=== PATIENT | male | born 1980 | race Caucasian/White ===

== ENCOUNTER 2024-07-07 13:49 | Emergency (ER) | payer BC, SELFPAY ==
--- NOTE | 2024-07-07 13:56 | ED.URI ---
HPI - URI/Sore Throat General Chief Complaint: Upper Respiratory Infection Stated Complaint: Strep Symptoms Time Seen by Provider: 07/07/24 13:56 Source: patient Mode of arrival: ambulatory Limitations: no limitations History of Present Illness HPI Narrative: Riley is a 43-year-old male patient presenting to the clinic today with complaints of possible strep. He reports he has had low-grade fever, and body aches, cough, congestion, and sore throat over the past 4-5 days. He reports that his and son both tested positive for the flu and strep. He denies any chest pain or shortness of breath. He reports that his symptoms are feeling better but the sore throat has gotten gradually worse. MD elicited complaint: sore throat and nasal congestion Related Data Home Medications ?Medication ?Instructions ?Recorded ?Confirmed ?Last Taken ?Type No Home Medications 07/07/24 07/07/24 Unknown History Allergies Allergy/AdvReac Type Severity Reaction Status Date / Time No Known Allergies Allergy Verified 07/07/24 14:07 Review of Systems Review of Systems: Pertinent positives per HPI. Patient denies any rash, headache, visual changes, dizziness, shortness of breath, chest pain, palpitations, nausea, vomiting, diarrhea, constipation, abdominal pain, or any urinary issues. PMFSH Social History Social History Smoking status: Current every day smoker Alcohol intake: current Comments At the time of my signature, I reviewed and agree with the nursing past medical, surgical, social, and family history. There is no relevant family history pertinent to the patient complaint. Exam Narrative: General: Well-developed, well nourished, in no apparent distress Head: Normocephalic, atraumatic Eyes: Pupils equally round and reactive to light bilaterally, EOM intact, sclera and conjunctive clear, no discharge, lids normal Ears: TMs intact and clear, ear canals clear, no drainage, grossly hearing normal. Nose: Nares patent, clear nasal discharge, no inflammation, no sinus tenderness. Mouth: Oral pharynx red without lesions or masses, good dentition, MMM. Postnasal drip, tonsils surgically absent. Neck: Supple, trachea midline, no enlargement of anterior or posterior cervical nodes, no thyroid masses or goiter palpable. Cardio: Regular rate and rhythm, s1 and s2 normal, no murmur appreciated. Resp: Clear to auscultation bilaterally, no rhonchi, rales, wheezing or rubs Course Course Emergency Course: Portions of this record may have been created with voice recognition software. Level of Care: Express Care Visit Vital Signs Vital signs: Vital Signs Temperature 36.1 C L 07/07/24 14:08 Pulse Rate 89 07/07/24 14:08 Respiratory Rate 16 07/07/24 14:08 Blood Pressure 156/88 H 07/07/24 14:08 Pulse Oximetry 97 07/07/24 14:08 Temperature 36.1 C L 07/07/24 14:08 Pulse Rate 89 07/07/24 14:08 Respiratory Rate 16 07/07/24 14:08 Blood Pressure 156/88 H 07/07/24 14:08 Pulse Oximetry 97 07/07/24 14:08 Vital signs reviewed MDM - URI/Sore Throat MDM Narrative Medical decision making narrative: At the time of visit patient is resting comfortably on the exam table. Patient appears to be nontoxic. Labs: Strep, COVID, and influenza testing was all negative. We will send strep for culture. Plan: I suspect patient has URI/pharyngitis/viral syndrome. Supportive measures were discussed with the patient and they voiced understanding discharge instructions and agrees to treatment plan. Return precautions reviewed Differential Diagnosis Differential diagnosis: Likely upper respiratory infection, otitis media, sinusitis, viral infection, bronchitis, influenza, pharyngitis and other (COVID) Discharge Plan Discharge Clinical Impression: Viral infection Upper respiratory infection Qualifiers: URI type: unspecified URI Qualified Code(s): J06.9 - Acute upper respiratory infection, unspecified Pharyngitis Qualifiers: Pharyngitis/tonsillitis etiology: unspecified etiology Qualified Code(s): J02.9 - Acute pharyngitis, unspecified Patient Disposition: Home, Self-Care Condition: Stable Instructions: Antibiotic Form, Pharyngitis (ED), Viral Syndrome (ED), Cold Symptoms (ED) Additional Instructions: COVID, influenza, and strep test were all negative in the clinic today. We will send strep for culture if this comes back positive we will contact you in place you on antibiotics at that time. Increase fluids and stay well hydrated Tylenol/motrin for pain/fever Flonase and OTC antihistamines as directed Vicks vapor rub to open sinuses Sinus rinses for congestion Cepacol spray, cough drops, throat lozenges, warm tea with honey/lemon, gargle salt water to soothe throat BRAT diet for diarrhea Clear liquids x 24 hours then advance as tolerated for nausea/vomiting Go to the ED if you develop a worsening in your condition- high fever not controlled by Tylenol or Motrin, dehydration, weakness, lethargy, shortness of breath, or chest pain. Follow up with your PCP in 3-5 days if symptoms persist. Patient Language: Anguill[place] Prescriptions: No Action No Home Medications Follow-up/Referrals: PHYSICIAN,GARNETT MACHINE OPERATOR HELPER [Primary Care Provider] - Time of Disposition: 14:10 Quality NIHSS Nursing Documentation ED NIHSS nursing documentation: reviewed/agree
[2024-07-07 14:08] VITALS: BP 156/88; PULSE 89; RESP 16; TEMP 36.1; O2SAT 97
[2024-07-07 14:19] LABS: EDCOVIDSCREEN Negative (Negative); EDINFLUASCREEN Negative (Negative); EDINFLUBSCREEN Negative (Negative); EDSTREPNEGPOS1 Negative (Negative)
== END 2024-07-07 14:19 | disposition home or self-care (01) ==
PROVIDERS: Emergency Provider Nurse Practitioner Family
DX: B34.9 Viral infection, unspecified (principal); J06.9 Acute upper respiratory infection, unspecified; J02.9 Acute pharyngitis, unspecified; Z20.822 Contact with and (suspected) exposure to COVID-19; F17.200 Nicotine dependence, unspecified, uncomplicated
CPT/HCPCS: 87081; 87426; 87804; 87880; 99213; G0463

== ENCOUNTER 2024-07-24 13:20 | Emergency (ER) | payer BC, SELFPAY ==
--- NOTE | ~2024-07-24 | XR_ITS ---
EXAMINATION: XR chest 2V DATE: 07/24/2024 13:43 INDICATION: Cough and congestion. TECHNIQUE: Frontal and lateral views of the chest were obtained. COMPARISON: None. FINDINGS: There is no pneumonia, pleural effusion, or pneumothorax. The heart size is normal. There i s mild chronic anterior wedging of multiple vertebral bodies. IMPRESSION: 1. No acute cardiopulmonary disease. Reviewed, dictated and finalized at location A. ES 1 THROUGH 6 TEACHER
[2024-07-24 13:28] VITALS: BP 134/84; PULSE 76; RESP 16; TEMP 36.4; O2SAT 100
--- NOTE | 2024-07-24 13:36 | ED.URI ---
HPI - URI/Sore Throat General Chief Complaint: Upper Respiratory Infection Stated Complaint: Chest Congestion Source: patient and RN notes reviewed Mode of arrival: ambulatory Limitations: no limitations History of Present Illness HPI Narrative: Patient is a 43-year-old male who presents to the [facility] complaints ongoing cough for the past couple weeks. Patient states that he was sick a couple weeks ago with cough, congestion, body aches, chills. He tested negative for both COVID and flu at that time. However, his son and were diagnosed with influenza A. He states that he has had an ongoing nonproductive cough that is occasionally productive. He reports chest congestion. Denies shortness of breath. Denies recent fevers. His respirations are unlabored. Related Data Allergies Allergy/AdvReac Type Severity Reaction Status Date / Time No Known Allergies Allergy Verified 07/07/24 14:07 Review of Systems Review of Systems: CONSTITUTIONAL: Denies fever, chills, or sweats. EYES: Denies visual changes, redness, or discharge. ENT: Denies otalgia and sore throat CARDIOVASCULAR: Denies chest pain, palpitations, or edema. RESPIRATORY: Reports cough but denies dyspnea. GASTROINTESTINAL: Denies abdominal pain, nausea, vomiting, or diarrhea. GENITOURINARY: Denies dysuria or hematuria. SKIN: Denies rash or itching. MUSCULOSKELETAL: Denies back pain, joint pain, or myalgia. NEUROLOGIC: Denies headache, numbness, or weakness. Pertinent positives per HPI. PMFSH Social History Social History Smoking status: Current every day smoker Alcohol intake: current Comments At the time of my signature, I reviewed and agree with the nursing past medical, surgical, social, and family history. There is no relevant family history pertinent to the patient complaint. Exam Narrative: GENERAL: This is a well-nourished, well-developed patient, in no apparent distress. HEAD: normocephalic, atraumatic. EYES: Sclera clear/white. Vision is grossly intact. EARS: External ears normal, auditory canals clear and without drainage, TMs normal without perforation. Hearing grossly intact. NOSE: External nose normal with no obvious nasal discharge, nares without redness, no rhinorrhea. THROAT: Mucous membranes moist, posterior pharynx clear. NECK: Neck supple, non-tender without lymphadenopathy, masses or thyromegaly. CARDIOVASCULAR: Regular rate and rhythm without murmurs, gallops, or rubs. RESPIRATORY: Clear to auscultation. Breath sounds equal bilaterally. No wheezes, rales, or rhonchi. GASTROINTESTINAL: Abdomen soft, non-tender, nondistended. Bowel sounds are active. No hepato-splenomegaly, or palpable masses. No guarding. SKIN: warm, intact with no suspicious lesions or rash, good texture and turgor. NEURO: awake, alert, and oriented to person, place and time. There were no obvious focal neurologic abnormalities. Course Course Level of Care: Express Care Visit Vital Signs Vital signs: Vital Signs Temperature 97.5 F L 07/24/24 13:28 Pulse Rate 76 07/24/24 13:28 Respiratory Rate 16 07/24/24 13:28 Blood Pressure 134/84 07/24/24 13:28 Pulse Oximetry 100 07/24/24 13:28 Temperature 97.5 F L 07/24/24 13:28 Pulse Rate 76 07/24/24 13:28 Respiratory Rate 16 07/24/24 13:28 Blood Pressure 134/84 07/24/24 13:28 Pulse Oximetry 100 07/24/24 13:28 Reviewed MDM - URI/Sore Throat MDM Narrative Medical decision making narrative: Take steroids as directed. May use the inhaler every 4-6 hours as needed for coughing. Increase fluids at home. Avoid any and all smoke. May use a humidifier in the bedroom. Increase your Vitamin C. Follow-up with personal physician in 2-5 days. Differential Diagnosis Differential diagnosis: Likely upper respiratory infection, bronchitis and other (pneumonia) Imaging Data Attestation: I personally reviewed and interpreted this imaging study as follows: Radiologist's impression: [facility] [address] [facility] [address] XRay Report Signed Patient: Riley Gutierrez : 1980 MR#: [id number] Age: 43 Acct:[id number] Loc: [id number] ADM Date: 07/24/24Attending Dr: Ordering Physician: Shaye Avalos APRN Date of Service: 07/24/24 Procedure(s): XR chest 2V Accession Number(s): [id number] cc: Shaye Avalos Jackelin VASQUEZ; FORENSICS TEAM DIRECTOR PHYSICIAN~ EXAMINATION: XR chest 2V DATE: 07/24/2024 13:43 INDICATION: Cough and congestion. TECHNIQUE: Frontal and lateral views of the chest were obtained. COMPARISON: None. FINDINGS: There is no pneumonia, pleural effusion, or pneumothorax. The heart size is normal. There is mild chronic anterior wedging of multiple vertebral bodies. IMPRESSION: 1. No acute cardiopulmonary disease. Reviewed, dictated and finalized at location A. HOUSE LABORER Please be advised this is a medical document. It is intended for [id number] communication. It is written in medical language and may contain unfamiliar abbreviations or verbiage. Medical documents are intended to carry relevant information, facts as evident, and the clinical opinion of the practitioner at the time of the encounter. This report may have been done utilizing a voice recognition system. Attempts have been made to correct errors. However, there may be uncorrected grammatical, spelling, and recognition errors present. The file time of this note does not necessarily represent the time of service. Dictated By: Fabien Bartholomew MD 07/24/24 1345 Signed By: <Electronically signed by Fabien Bartholomew MD in OV> 07/24/24 1346 Critical Care Time Critical Care Time Critical Care Time: No Discharge Plan Discharge Clinical Impression: Acute viral bronchitis Patient Disposition: Home, Self-Care Condition: Stable Instructions: Acute Bronchitis (ED) Additional Instructions: Take steroids as directed. May use the inhaler every 4-6 hours as needed for coughing. Increase fluids at home. Avoid any and all smoke. May use a humidifier in the bedroom. Increase your Vitamin C. Follow-up with personal physician in 2-5 days. Patient Language: Maori Prescriptions: New prednisone 50 mg tablet 50 mg PO DAILY 5 Days Qty: 5 0RF albuterol sulfate [Ventolin HFA] 90 mcg/actuation HFA aerosol inhaler 2 puff inhalation QID PRN (Reason: shortness of breath or wheezing) Qty: 6.7 0RF Follow-up/Referrals: PHYSICIAN,FORENSICS TEAM DIRECTOR [Primary Care Provider] - Time of Disposition: 13:51
== END 2024-07-24 13:53 | disposition home or self-care (01) ==
PROVIDERS: Emergency Provider Nurse Practitioner
DX: J20.8 Acute bronchitis due to other specified organisms (principal); F17.200 Nicotine dependence, unspecified, uncomplicated
CPT/HCPCS: 71046; 99213; G0463